=== PATIENT | female | born 1980 | race Caucasian/White ===

== ENCOUNTER 2025-04-13 08:48 | Emergency (ER) | payer BC, MEDICAID ==
[~2025-04-13] VITALS: Ht 154.9 cm; Wt 56.9 kg
[2025-04-13] MEDS: IV NS 0.9% 500 ML BAG IV ONE (09:22)
[2025-04-13 09:27] LABS: PLATELET COUNT (AUTO) 260 K/uL (150-450); RED BLOOD CELL COUNT(AUTO) 4.11 MIL/uL (4.0-5.2); RED CELL DISTRIBUTION WIDTH 12.4 % (11.5-15.0); WHITE BLOOD COUNT (AUTO) 2.7 K/uL (4.3-11.0)
[2025-04-13 09:38] LABS: CALCIUM, SERUM 8.6 mg/dL (8.5-10.1); CREATININE 0.6 mg/dL (0.6-1.3); SODIUM SERUM 142 mmol/L (136-145); UREA NITROGEN, BLOOD 14 mg/dL (7-18)
[2025-04-13 10:03] LABS: NT-PRO BNP 73 pg/mL (0-125); PREGNANCY TEST SERUM QUAN 0 mIU/mL (0-6)
[2025-04-13] MEDS ORDERED: IOHEXOL-350 100 ML VIAL IV ONE (10:10)
[2025-04-13] MEDS ORDERED: IV NS 0.9% 250 ML IV ONE (10:10)
[2025-04-13 11:47] VITALS: BP 105/66; TEMP 97.9; O2SAT 99
[2025-04-13 13:15] LABS: LYMPHOCYTES % (MANUAL) 68 % (16-48); MONOCYTES % (MANUAL) 5 % (0-11.0); NEUTROPHILS % (MANUAL) 27 (42-76); PLATELET ESTIMATE ADEQUATE
== END 2025-04-13 11:49 | disposition home or self-care (01) ==
LOC: ER 08:48
DX: R07.89 Other chest pain (principal); R06.02 Shortness of breath; R00.2 Palpitations; R10.2 Pelvic and perineal pain; R00.0 Tachycardia, unspecified; Z85.3 Personal history of malignant neoplasm of breast; Z92.21 Personal history of antineoplastic chemotherapy
CPT/HCPCS: 71275; 71045; 93005 ×2; 85027; 80048; 85007; 36415; 84484 ×2; 83880; 84702; 80503; 99285; J7050; J7040; Q9967

== ENCOUNTER 2025-06-10 00:06 | Emergency (ER) | payer BC ==
[~2025-06-10] VITALS: Ht 154.9 cm; Wt 56.7 kg
[2025-06-10] MEDS: IV NS 0.9% 1,000 ML IV ONE (02:10)
[2025-06-10 02:22] LABS: PLATELET COUNT (AUTO) 218 K/uL (150-450); RED BLOOD CELL COUNT(AUTO) 3.10 MIL/uL (4.0-5.2); RED CELL DISTRIBUTION WIDTH 16.4 % (11.5-15.0); WHITE BLOOD COUNT (AUTO) 6.1 K/uL (4.3-11.0)
[2025-06-10 02:27] LABS: CALCIUM, SERUM 8.5 mg/dL (8.5-10.1); CREATININE 0.8 mg/dL (0.6-1.3); SODIUM SERUM 141.0 mmol/L (136-145); UREA NITROGEN, BLOOD 13.0 mg/dL (7-18)
[2025-06-10 02:35] LABS: LACTIC ACID 0.5 mmol/L (0.4-2.0)
[2025-06-10 02:40] LABS: ASPARTATE AMINOTRANSFERASE 18.0 U/L (15-37); NT-PRO BNP 16.0 pg/mL (0-125); TOTAL PROTEIN, SERUM 7.1 g/dL (6.4-8.2)
[2025-06-10 03:44] LABS: APPEARANCE,URINE CLEAR (CLEAR); BLOOD, URINE NEGATIVE Ery/uL (NEGATIVE); LEUKOCYTE ESTERASE ,URINE NEGATIVE (NEGATIVE); NITRITE, URINE NEGATIVE (NEGATIVE); UGLUCOSE NEGATIVE (NEGATIVE)
[2025-06-10 03:46] LABS: PREGNANCY TEST URINE QUAL NEGATIVE (NEGATIVE)
[2025-06-10 04:28] VITALS: BP 120/78; TEMP 98.2; O2SAT 97
== END 2025-06-10 04:29 | disposition home or self-care (01) ==
LOC: ER 00:16
DX: M79.10 Myalgia, unspecified site (principal); R06.02 Shortness of breath; Z85.3 Personal history of malignant neoplasm of breast; Z20.822 Contact with and (suspected) exposure to COVID-19
CPT/HCPCS: 99285; 96360; 71045; 87426; 93005; 87804 ×2; 85025; 87040; 83605; 84703; 81003; 36415; 80053; 84484; 83880; J7030